=== PATIENT | female | born 1990 | race Caucasian/White ===

== ENCOUNTER 2016-09-24 17:39 | Emergency (ER) | payer SELFPAY ==
[2016-09-24 21:02] LABS: HEMOGLOBIN 15.6 gm/dl (12.3-15.3); RED BLOOD COUNT 5.86 M/UL (4.00-5.10); WHITE BLOOD COUNT 13.8 K/UL (4.5-11.0)
[2016-09-25 05:11] LABS: BUN/CREATININE RATIO 22 (0-10)
== END 2016-09-25 08:30 | disposition home or self-care (01) ==
LOC: ER1 17:39
PROVIDERS: Emergency Medicine; Physician Assistant
DX: K95.09 Other complications of gastric band procedure (principal); R10.816 Epigastric abdominal tenderness; E87.6 Hypokalemia; Z88.1 Allergy status to other antibiotic agents
CPT/HCPCS: 36415; 71010; 80048; 80053; 83690; 83735; 84703; 85025; 93005; 96361; 96374; 96375; 96376; 99285; J2270; J2550; J3480; J7030; J7050; Q9962

== ENCOUNTER 2021-07-21 08:53 | Emergency (ER) | payer OTHER ==
[~2021-07-21 08:53] MED LIST: AUGMENTIN 875-1 EACH PO; CEFUROXIME500 MG PO; COLACE 100MG C100 MG PO; FLEXERIL 10 MG10 MG PO; IBUPROFEN600 MG PO; LORTAB 5-325 M1 EACH PO; PERCOCET 5-3251 EACH PO; PRENATAL VITAM1 EAC8 PO; ZOFRAN4 MG PO
[2021-07-21 10:29] LABS: HEMOGLOBIN 14.1 gm/dl (12.3-15.3); RED BLOOD COUNT 5.27 M/UL (4.00-5.10); WHITE BLOOD COUNT 10.9 K/UL (4.5-11.0)
[2021-07-21 10:50] LABS: BUN/CREATININE RATIO 9 (0-10)
[2021-07-21] MEDS ORDERED: MOBIC15 MG PO (14:33)
[2021-07-21] MEDS ORDERED: PROTONIX40 MG PO (14:33)
[2021-07-21] MEDS ORDERED: CEPHALEXIN500 M1 PO (14:33)
[2021-07-21] MEDS ORDERED: ONDANSETRON ODT4 MG SL (14:33)
== END 2021-07-21 14:50 | disposition home or self-care (01) ==
LOC: ER1 08:53
PROVIDERS: Emergency Medicine
DX: K80.20 Calculus of gallbladder without cholecystitis without obstruction (principal); N39.0 Urinary tract infection, site not specified; Z88.1 Allergy status to other antibiotic agents; Z86.16 Personal history of COVID-19
CPT/HCPCS: 71045; 76705; 80053; 81001; 83605; 83690; 84703; 85025; 96372; 99284; J1885